=== PATIENT | female | born 1995 | race Caucasian/White ===

== ENCOUNTER 2021-03-02 09:02 | Emergency (ER) | payer OTHER ==
[~2021-03-02] VITALS: Ht 157.5 cm; Wt 59.0 kg
[2021-03-02 09:27] VITALS: BP 119/65
== END 2021-03-02 10:44 | disposition home or self-care (01) ==
LOC: EMS 09:08
DX: M25.561 Pain in right knee (principal); M25.562 Pain in left knee
CPT/HCPCS: 99281; Z7502